=== PATIENT | female | born 2000 | race Caucasian/White ===

== ENCOUNTER 2024-12-28 08:50 | Inpatient (IN) | payer OTHER ==
[2024-12-28] MEDS ORDERED: FAMOTIDINE 20 MG/50 ML IVPB 20 MG/50 ML MG IVPB ONE (09:49)
[2024-12-28] MEDS ORDERED: KETOROLAC TROMETHAMINE 15 MG/ML VIAL ONE (09:49)
[2024-12-28] MEDS ORDERED: ONDANSETRON 4 MG/2 ML VIAL ONE (09:49)
[2024-12-28 09:58] LABS: ABSOLUTE IMMATURE GRANULOCYTES 0.03 x10^3/uL (0.0-0.031); BASOPHILS # 0.03 x10^3/uL (0.01-0.08); EOSINOPHIL % 1.6 % (0.7-5.8); EOSINOPHILS # 0.08 x10^3/uL (0.04-0.36); HEMATOCRIT 34.3 % (34.1-44.9); HEMOGLOBIN 10.9 g/dL (11.2-15.7); MCHC 31.8 g/dl (32.2-35.5); MEAN PLT VOLUME 10.8 fl (9.4-12.3); MONOCYTE # 0.55 x10^3/uL (0.24-0.86); MONOCYTE % 10.7 % (4.7-12.5); PLATELET COUNT 230 x10^3/uL (182-369); RDW 13.2 % (12.1-16.5)
[2024-12-28] MEDS: SODIUM CHLORIDE 0.9% 500 ML INFUS.BAG IV ONE (09:59)
[2024-12-28] MEDS: KETOROLAC TROMETHAMINE 15 MG/ML VIAL IVPUSH ONE (10:00)
[2024-12-28] MEDS: ONDANSETRON 4 MG/2 ML VIAL IVPUSH ONE (10:00)
[2024-12-28] MEDS: ACETAMINOPHEN 1000 MG/100 ML BAG IVPB ONE (10:00)
[2024-12-28] MEDS: FAMOTIDINE 20 MG/50 ML IVPB 20 MG/50 ML MG IVPB ONE (10:00)
[2024-12-28 10:06] LABS: INR 1.32 (0.83-1.09); PROTHROMBIN TIME (PATIENT) 14.4 SEC (9.7-13.0)
[2024-12-28 10:09] LABS: ACTIVATED PTT 29.7 SECONDS (25.2-36.5)
[2024-12-28 10:19] LABS: POTASSIUM 3.7 mmol/L (3.5-5.1)
[2024-12-28 10:21] LABS: ALBUMIN 3.7 g/dl (3.4-5.0); CALCIUM 9.2 mg/dL (8.5-10.1)
[2024-12-28 10:22] LABS: BLOOD UREA NITROGEN 6.6 mg/dL (7-18)
[2024-12-28 10:25] LABS: CREATININE 0.6 mg/dL (0.55-1.3)
[2024-12-28 10:26] LABS: BILIRUBIN,TOTAL 2.5 mg/dL (0.2-1); TOT PROT 6.9 g/dl (6.4-8.2)
[2024-12-28] MEDS: DEXTROSE 5%-NORMAL SALINE 1,000 ML IV SCH (11:37)
[2024-12-28] MEDS ORDERED: ONDANSETRON 4 MG/2 ML VIAL IVPUSH PRN (12:04)
[2024-12-28] MEDS ORDERED: PIPERACILLIN/TAZOB 3.375 GM 3.375 GM/50 ML BAG IVPB ONE (12:48)
[2024-12-28] MEDS: PIPERACILLIN/TAZOB 3.375 GM 3.375 GM in DEXTROSE 5%-WATER - 50 ML IVPB ONE (12:53)
[2024-12-28 15:43] VITALS: BMI 21.6
[2024-12-28] MEDS: KETOROLAC TROMETHAMINE 15 MG/ML VIAL IVPUSH PRN (16:26)
[2024-12-29 09:41] LABS: HEMATOCRIT 32.9 % (34.1-44.9); HEMOGLOBIN 10.4 g/dL (11.2-15.7); MCHC 31.6 g/dl (32.2-35.5); MEAN CELL VOLUME 91.6 fl (79.4-94.8); MEAN PLT VOLUME 10.8 fl (9.4-12.3); PLATELET COUNT 216 x10^3/uL (182-369); RDW 13.2 % (12.1-16.5)
[2024-12-29] MEDS: PIPERACILLIN/TAZOB 3.375 GM 50 ML IVPB SCH (09:49)
[2024-12-29 10:09] LABS: CHLORIDE 110 mmol/L (98-107); POTASSIUM 3.4 mmol/L (3.5-5.1); SODIUM 141 mmol/L (136-145)
[2024-12-29 10:11] LABS: ALBUMIN 3.1 g/dl (3.4-5.0); ANION GAP 6 mmol/L (4-13); BLOOD UREA NITROGEN 2.2 mg/dL (7-18); CALCIUM 8.5 mg/dL (8.5-10.1); CO2 25 mmol/L (21-32); GLUCOSE,RANDOM 94 mg/dL (74-106)
[2024-12-29 10:14] LABS: SGOT/AST 286 U/L (15-37); SGPT/ALT 684 U/L (13-61)
[2024-12-29 10:15] LABS: CREATININE 0.5 mg/dL (0.55-1.3)
[2024-12-29 10:16] LABS: TOT PROT 5.9 g/dl (6.4-8.2)
[2024-12-29 10:17] LABS: ALK PHOS 137 U/L (45-117)
[2024-12-29] MEDS: PIPERACILLIN/TAZOB 3.375 GM 3.375 GM in DEXTROSE 5%-WATER - 50 ML IVPB SCH (14:08)
[2024-12-30 08:41] LABS: INR 1.2 (0.83-1.09); PROTHROMBIN TIME (PATIENT) 13.2 SEC (9.7-13.0)
[2024-12-30 09:01] LABS: POTASSIUM 3.5 mmol/L (3.5-5.1)
[2024-12-30 09:03] LABS: BLOOD UREA NITROGEN 7.3 mg/dL (7-18); CALCIUM 8.8 mg/dL (8.5-10.1)
[2024-12-30 09:04] LABS: ALBUMIN 3.3 g/dl (3.4-5.0); MAGNESIUM 2.1 mg/dL (1.8-2.4)
[2024-12-30 09:06] LABS: BILIRUBIN,DIRECT 0.3 mg/dL (0.0-0.2); CREATININE 0.6 mg/dL (0.55-1.3); PHOSPHOROUS 4.1 mg/dL (2.5-4.9)
[2024-12-30 09:08] LABS: BILIRUBIN,TOTAL 0.8 mg/dL (0.2-1); TOT PROT 6.4 g/dl (6.4-8.2)
[2024-12-30] MEDS ORDERED: BUPIVACAINE HCL/PF 0.5% (5MG/ML) 10 ML VIAL ONE (11:13)
[2024-12-30] MEDS ORDERED: ROCURONIUM BROMIDE 50 MG/5 ML VIAL ONE (11:59)
[2024-12-30] MEDS ORDERED: MIDAZOLAM HCL 2 MG/2 ML SINGLE DOSE VIAL ONE (12:00)
[2024-12-30] MEDS ORDERED: SUCCINYLCHOLINE CHLORIDE 200 MG/10 ML SYRINGE ONE (12:00)
[2024-12-30] MEDS ORDERED: PROPOFOL 20 ML ONE (12:00)
[2024-12-30] MEDS ORDERED: DEXAMETHASONE SOD PHOSPHATE 4 MG/1 ML VIAL ONE (12:01)
[2024-12-30] MEDS ORDERED: LIDOCAINE HCL/PF 2% SDV 5ML VIAL ONE (12:01)
[2024-12-30] MEDS ORDERED: ONDANSETRON 4 MG/2 ML VIAL ONE (12:01)
[2024-12-30] MEDS ORDERED: BUPIVACAINE HCL/PF 0.25% (2.5MG/ML) 10 ML VIAL ONE (12:10)
[2024-12-30] MEDS ORDERED: ONDANSETRON 4 MG/2 ML VIAL IVPUSH PRN ×2 (12:16→15:01)
[2024-12-30] MEDS ORDERED: LACTATED RINGERS SOLUTION 1,000 ML IV SCH (12:30)
[2024-12-30] MEDS: BUPIVACAINE HCL/PF 0.25% (2.5MG/ML) 10 ML VIAL IJ ONE ×2 (13:11)
[2024-12-30] MEDS ORDERED: ACETAMINOPHEN INJECTION 100 ML ONE (13:19)
[2024-12-30] MEDS ORDERED: HYDROmorphone HCl 2 MG/ML VIAL ONE (13:50)
[2024-12-30] MEDS ORDERED: ROCURONIUM BROMIDE 50 MG/5 ML SYRINGE ONE (13:55)
[2024-12-30] MEDS ORDERED: SUGAMMADEX SODIUM 200 MG/2 ML VIAL ONE (14:20)
[2024-12-30] MEDS ORDERED: oxyCODONE HCL 5 MG TABLET PO PRN (15:01)
[2024-12-30] MEDS ORDERED: ACETAMINOPHEN 500 MG TABLET (FP) PO PRN (15:01)
[2024-12-30] MEDS: LACTATED RINGERS SOLUTION 1,000 ML IV SCH (15:01)
[2024-12-30] MEDS: ACETAMINOPHEN 500 MG TABLET (FP) PO SCH (15:30)
[2024-12-30] MEDS: KETOROLAC TROMETHAMINE 15 MG/ML VIAL IVPUSH PRN (18:04)
[2024-12-30] MEDS: PIPERACILLIN/TAZOB 3.375 GM 50 ML IVPB ONE (18:04)
[2024-12-30] MEDS: ONDANSETRON 4 MG/2 ML VIAL IVPUSH PRN (18:06)
[2024-12-30 21:03] VITALS: RESP 18
[2024-12-31 09:13] LABS: ABSOLUTE IMMATURE GRANULOCYTES 0.05 x10^3/uL (0.0-0.031); BASOPHILS # 0.03 x10^3/uL (0.01-0.08); EOSINOPHIL % 0.5 % (0.7-5.8); EOSINOPHILS # 0.06 x10^3/uL (0.04-0.36); HEMATOCRIT 35.1 % (34.1-44.9); HEMOGLOBIN 11.4 g/dL (11.2-15.7); MCHC 32.5 g/dl (32.2-35.5); MEAN CELL VOLUME 88.2 fl (79.4-94.8); MEAN PLT VOLUME 10.5 fl (9.4-12.3); MONOCYTE # 0.97 x10^3/uL (0.24-0.86); MONOCYTE % 8.3 % (4.7-12.5); PLATELET COUNT 244 x10^3/uL (182-369); RDW 12.5 % (12.1-16.5)
[2024-12-31 09:54] LABS: POTASSIUM 3.2 mmol/L (3.5-5.1)
[2024-12-31 10:24] LABS: ALBUMIN 3.3 g/dl (3.4-5.0); CALCIUM 9.1 mg/dL (8.5-10.1)
[2024-12-31 10:25] LABS: BLOOD UREA NITROGEN 9.5 mg/dL (7-18)
[2024-12-31 10:27] LABS: BILIRUBIN,DIRECT 0.3 mg/dL (0.0-0.2)
[2024-12-31 10:28] LABS: CREATININE 0.6 mg/dL (0.55-1.3)
[2024-12-31 10:29] LABS: TOT PROT 6.4 g/dl (6.4-8.2)
[2024-12-31 13:43] VITALS: BP 104/64; PULSE 62; TEMP 98.2
== END 2024-12-31 14:11 | disposition home or self-care (01) | DRG 263 ==
LOC: JER 08:50 → JERBED 11:53 → J5S 14:32
PROVIDERS: ADMIT Internal Medicine
PROC: 0FT44ZZ Resection of Gallbladder, Percutaneous Endoscopic Approach (ICD-10-PCS; principal; 2024-12-30 12:52)
DX: K80.00 Calculus of gallbladder with acute cholecystitis without obstruction (principal); R10.11 Right upper quadrant pain; R82.71 Bacteriuria
CPT/HCPCS: 0241U-QW; 36415; 74177-TC; 74181-TC; 76700-TC; 76705-TC; 80048; 80053; 80076; 81003; 83605; 83690; 83735; 84100; 84703; 85025; 85027; 85610; 85730; 86140; 86803; 86850; 86900; 86901; 87086; 87186; 87389; 88304-TC; 94760; 99285-25; J0131; Q9967